=== PATIENT | female | born 1990 | race Caucasian/White ===

== ENCOUNTER → 2020-11-12 09:34 | Outpatient (CLI) | payer SELFPAY ==
--- NOTE | 2020-11-12 09:35 | CA_ITS ---
APPROVED REPORT EXAM: Comprehensive 2D, Doppler, and color-flow Echocardiogram Dinkey Driver: Jacqueline Garza CRT Ht: 5 ft 5 in Wt: 261lbs BSA: 2.22 BP: 140/89 mmHg Indications: Murmur, Obesity, Smoker 2D Dimensions LVOT 1.99 cm (M/F) 1.5-2.5 LA Volume 25.40 mL LA Volume Index 11.40 mL/m2 (M/F) 16-34 M-Mode Dimensions RVDd 2.35 cm (0.9-2.6) LA Diam 3.16 cm (1.9-4.0) LVDd 4.10 cm (3.5-5.7) Ao Diam 3.43 cm (2.0-3.7) LVDs 2.75 cm (3.5-5.7) IVSd 1.44 cm (0.6-1.1) PWd 1.13 cm (0.6-1.1) EF (Teich) 61.90% FS 32.90% EDV (Teich) 74.20 mL TAPSE 2.38 (<1.7) ESV (Teich) 28.30 mL LV Diastology E Decel Time 180.00 (160-240 msec) E/A Ratio 1.25 MED E' 11.10 (< 7 cm/sec) MED A' 13.40 cm/s E'/MED E' Ratio 7.40 (>14) LAT E' 10.90 (<10 cm/sec) LAT A' 9.80 cm/s E/LAT E' Ratio 7.53 (>14) Aortic Valve AO Peak GR. 6.50 mmHg Mitral Valve MV A Velocity 65.00 (40-130 cm/s) E/A Ratio 1.25 MV Decel. Time 180.00 (160-240 ms) Pulmonary Valve PV Peak Velocity 107.00 (50-150 cm/s) Tricuspid Valve TR P. Velocity 195.00 cm/s RAP Estimate 10.00 mmHg RVSP 25.20 mmHg Left Ventricle Left atrium is normal size, left ventricle is normal size, there is no concentric left ventricular hypertrophy, visually estimated ejection fraction 55% with no regional wall motion abnormality, diastolic parameters are within normal range. Right Ventricle Right atrium and right ventricle are normal size and contractility. Aortic Valve Aortic valve is grossly normal, there is no aortic stenosis or insufficiency. Mitral Valve Mitral valve grossly normal, there is trace mitral regurgitation. Tricuspid Valve Tricuspid valve grossly normal, there is trace tricuspid regurgitation, tricuspid regurgitation jet velocity is inadequate for calculation of the right ventricular systolic pressure. Pulmonic Valve Pulmonic valve is poorly visualized. Great Vessels Aortic root is normal size. Pericardium No significant pericardial effusion noted. Conclusion 1. Normal left ventricular size, preserved left ventricular systolic function, visually estimated ejection fraction of 55% with no regional wall motion abnormality, diastolic parameters are within normal range. 2. Trace mitral and tricuspid regurgitation. 3. No significant pericardial effusion noted. Electronically signed by : Terrance Pizarro MD 11/12/2020 21:22:50
== END ==
PROVIDERS: PCP Family Medicine; Visit Provider Family Medicine
DX: R01.1 Cardiac murmur, unspecified (principal)
CPT/HCPCS: 93306